=== PATIENT | female | born 2000 | race Two or more races ===

== ENCOUNTER 2025-01-04 16:16 | Emergency (ER) | payer OTHER ==
[~2025-01-04] VITALS: Ht 162.6 cm; Wt 59.4 kg
[2025-01-04] MEDS ORDERED: TRAMADOL HCL 50 MG TABLET PO ONE (17:15)
[2025-01-04] MEDS ORDERED: NORFLEX100MG PO (18:04)
== END 2025-01-04 21:34 | disposition home or self-care (01) ==
LOC: ER 16:17
DX: S69.82XA Other specified injuries of left wrist, hand and finger(s), initial encounter (principal); X58.XXXA Exposure to other specified factors, initial encounter; Y93.89 Activity, other specified; Y92.89 Other specified places as the place of occurrence of the external cause; Y99.8 Other external cause status; Z91.013 Allergy to seafood